=== PATIENT | female | born 1970 | race Caucasian/White ===

== ENCOUNTER → 2016-04-26 | Outpatient (CLI) | payer OTHER | LOC: FIMAGING 09:00 | PROVIDERS: ATTEND Physician Assistant | DX: Z12.31 Encounter for screening mammogram for malignant neoplasm of breast (principal); Z01.818 Encounter for other preprocedural examination; R13.14 Dysphagia, pharyngoesophageal phase; M06.9 Rheumatoid arthritis, unspecified | CPT/HCPCS: G0202 ==

== ENCOUNTER → 2017-05-08 | Outpatient (CLI) | payer OTHER | LOC: FIMAGING 09:04 | PROVIDERS: ATTEND Family Medicine | DX: Z12.31 Encounter for screening mammogram for malignant neoplasm of breast (principal) ==

== ENCOUNTER → 2017-06-20 | Outpatient (CLI) | payer OTHER | LOC: FIMAGING 11:07 | PROVIDERS: ATTEND Internal Medicine Rheumatology | DX: M06.9 Rheumatoid arthritis, unspecified (principal) ==

== ENCOUNTER → 2018-03-24 | Outpatient (CLI) | payer OTHER | LOC: FLAB 17:08 | PROVIDERS: ATTEND Family Medicine | DX: M79.674 Pain in right toe(s) (principal) ==

== ENCOUNTER → 2018-05-29 | Outpatient (CLI) | payer OTHER | LOC: FIMAGING 08:43 | PROVIDERS: ATTEND Family Medicine | DX: Z12.31 Encounter for screening mammogram for malignant neoplasm of breast (principal) ==